=== PATIENT | male | born 1940 | race Caucasian/White ===

== ENCOUNTER 2020-09-16 14:25 | Emergency (ER) | payer MEDICARE, BC ==
[~2020-09-16] VITALS: Ht 182.9 cm; Wt 106.6 kg
[2020-09-16 15:09] LABS: URINE BILIRUBIN NEGATIVE (Negative); URINE BLOOD TRACE (Negative); URINE CLARITY CLEAR; URINE COLOR YELLOW; URINE GLUCOSE-RANDOM NEGATIVE (Negative); URINE KETONES NEGATIVE (Negative); URINE LEUKOCYTES-REFLEX NEGATIVE (Negative); URINE NITRITE-REFLEX NEGATIVE (Negative); URINE PROTEIN NEGATIVE (Negative); URINE UROBILINOGEN 0.2 E.U./dl (0.2-1.0)
[2020-09-16 15:11] LABS: ABSOLUTE EOSINOPHILS 0.1 thou/uL (0.0-0.7); ABSOLUTE LYMPHOCYTES 1.6 thou/uL (0.8-5.3); ABSOLUTE MONOCYTES 0.4 thou/uL (0.0-1.2); ABSOLUTE NEUTROPHILS 4.5 thou/uL (1.6-8.1); BASOPHILS 0.6 %; EOSINOPHILS 2.2 %; HEMATOCRIT 46.6 % (42.0-52.0); HEMOGLOBIN 16.4 gm/dL (14.0-18.0); LYMPHOCYTES 23.6 %; MCH 31.9 pg (26.0-34.0); MCHC 35.1 g/dL (28.0-37.0); MCV 90.8 fL (80.0-100.0); MONOCYTES 6.3 %; MPV 7.3 fl. (7.2-11.1); NUCLEATED RBCS 0 /100WBC; PLATELET COUNT* 287 thou/uL (150-400); POLYS 67.3 %; RBC 5.13 mil/uL (4.50-6.00); RDW-CV 13.6 % (10.5-14.5); WBC 6.7 thou/uL (4.0-11.0)
[2020-09-16 15:20] LABS: CALCIUM 8.5 mg/dL (8.5-10.1); CREATININE 0.7 mg/dL (0.6-1.3); POTASSIUM 3.2 mmol/L (3.5-5.1)
[2020-09-16 15:23] LABS: APTT 26.7 Seconds (25.0-31.3); PROTIME 10.6 Seconds (9.20-11.50)
[2020-09-16 15:31] LABS: ALBUMIN 4.1 g/dL (3.4-5.0); TOTAL BILIRUBIN 0.8 mg/dL (<0.1-1.0); TOTAL PROTEIN 7.5 g/dL (6.4-8.2)
[2020-09-16 16:17] VITALS: BP 144/93
--- NOTE | 2020-09-16 16:50 | EKG ---
[place] [address] ELECTROCARDIOGRAM REPORT Name: CESARELDON Ernie Room: [facility]#: [id number] Admission: 09/16/20 Attend Phys: Discharge: 09/16/20 Date of : 42 Date of Service: 09/16/20 1444 Report #: [id number] THIS REPORT FOR: //name// [facility] ED Test Date: 2020-09-16 Test Time: 14:44:35 Pat Name: ELDON GUERRERO Department: Room: Gender: Sports Manager: [facility] : 1940 Requested By: Santos Hester Order Number: [id number] MD: Sai Arguello Measurements Intervals [place] Rate: 81 P: 13 FL: 222 QRS: -49 QRSD: 101 T: 44 QT: 417 QTc: 484 Interpretive Statements Sinus rhythm Atrial premature complexes Prolonged FL interval Inferior infarct, old Anterior infarct, old No previous ECG available for comparison Electronically Signed On 09-16-2020 16:50:47 CDT by Sai Arguello [email or web address] <ELECTRONICALLY SIGNED> By: Sai Arguello MD, [facility] 09/16/20 1650 1444 1444 Sai Arguello MD, [facility] /EPI
== END 2020-09-16 16:17 | disposition home or self-care (01) ==
LOC: M.ERS 14:25
PROVIDERS: Family Medicine
DX: R42 Dizziness and giddiness (principal)